=== PATIENT | female | born 1995 | race Caucasian/White ===

== ENCOUNTER 2018-12-07 12:32 | Emergency (ER) | payer OTHER ==
[~2018-12-07] VITALS: Ht 167.6 cm; Wt 56.8 kg
[2018-12-07 12:44] VITALS: BP 111/53
[2018-12-07] MEDS ORDERED: PROPARACAINE/FLUORESCEIN ophthalmic drops 5ml bottle LEFTEYE ONE (13:30)
[2018-12-07] MEDS ORDERED: DOXY100T2 PO (13:48)
[2018-12-07] MEDS ORDERED: proparacaine 0.5% ophthalmic drops 15ml LEFTEYE ONE (14:00)
== END 2018-12-07 14:31 | disposition home or self-care (01) ==
LOC: ER 12:33
DX: H10.9 Unspecified conjunctivitis (principal); Z79.899 Other long term (current) drug therapy
CPT/HCPCS: 99283